=== PATIENT | female | born 1995 | race Caucasian/White ===

== ENCOUNTER → 2024-10-16 12:15 | Outpatient (CLI) | payer BC, SELFPAY ==
--- NOTE | 2024-10-16 12:16 | DI.MRI.S_ITS ---
PROCEDURE: MR ABDOMEN LIVER PROTOCOL INDICATIONS: focal nodular hyperplasia of liver, f/up size/change TECHNIQUE: Coronal HASTE, axial 2D FLASH in- and [id number]; axial breath-hold T2 FSE. Dynamic axial VIBE during the administration of contrast; post-contrast coronal VIBE or 2D FLASH with fat saturation from the hepatic dome to the iliac crests. Optional diffusion weighted imaging and ADC may be performed. COMPARISON: [facility], US, ABDOMEN COMPLETE, 09/05/2017, 8:55. Outside Facility, MR, MR AB PANCREATIC/MRCP PROTOCOL, 09/14/2020, 12:41. FINDINGS: Image quality: Diagnostic. Lung bases: Unremarkable. Liver: Similar size of the 1.8 cm lesion in segment 5/6, which demonstrates slightly T2 intermediate signal, T1 hypointense signal, arterial enhancement with fading on the delayed sequences (series 10, image 53).. Gallbladder: No gallstones or wall thickening. Biliary ducts: No biliary dilation. Pancreas: No ductal dilation. Spleen: Size is within normal limits. Adrenal Glands: No adrenal nodules. Kidneys and Ureters: No hydronephrosis. No solid mass. No complex renal cystic lesion which requires follow up. Stomach and Bowel: Normal colonic caliber, without significant wall thickening. Peritoneum: No abnormal intraperitoneal fluid. No free air. Ventral Wall: No hernia. Abdominal Nodes: No retroperitoneal or mesenteric adenopathy by size criteria. Vessels: Aorta and inferior vena cava are normal in size. Bones: No aggressive osseous abnormality. IMPRESSION: Stable 1.8 cm enhancing lesion in segment 5/6 of the liver, either representing focal nodular hyperplasia or an adenoma. This previously measured 1.1 cm in 2018. If there is a desire to differentiate focal nodular hyperplasia from adenoma, repeat MRI can be performed with Eovist contrast (hepatic mass protocol with Eovist). Dictated by: Glenn Busch M.D. on 10/20/2024 at 13:48 Approved by: Glenn Busch M.D. on 10/20/2024 at 13:58
== END ==
PROVIDERS: PCP Family Medicine; Referring Provider Family Medicine; Visit Provider Family Medicine
DX: K76.89 Other specified diseases of liver (principal)
CPT/HCPCS: 74183; A9579